=== PATIENT | female | born 1950 | race Caucasian/White ===

== ENCOUNTER → 2021-04-25 | Outpatient (CLI) | payer MEDICARE, OTHER | END | disposition home or self-care (01) | LOC: LABPAT 11:17 | PROVIDERS: ATTEND Orthopaedic Surgery | DX: Z01.812 Encounter for preprocedural laboratory examination (principal); M16.12 Unilateral primary osteoarthritis, left hip; Z22.322 Carrier or suspected carrier of Methicillin resistant Staphylococcus aureus | CPT/HCPCS: 87070 ==

== ENCOUNTER 2021-04-27 05:58 | Day surgery (SDC) | payer MEDICARE, OTHER ==
[2021-04-25 11:03] VITALS: BMI 25.4
[~2021-04-27 05:58] MED LIST: ALPRAZolam 0.25 MG TAB PO PRN; ALPRAZolam 0.5 MG TAB PO PRN; ASPIRIN 325 MG TAB PO STA; ATORVASTATIN 80 MG TAB PO STA; NITROGLYCERIN SL TABS 0.4 MG TAB SUBLINGUAL PRN; SODIUM CHLORIDE 0.9% 1,000 ML in EMPTY BAG 1 BAG IV ONE
[2021-04-27 06:53] VITALS: RESP 18; TEMP 98
[2021-04-27] MEDS ORDERED: fentaNYL (PF) 50 MCG/ML 2 ML AMP ONE (07:10)
[2021-04-27] MEDS ORDERED: LIDOCAINE 1% INJ 10MG/ML (20 ML MDV) ONE (07:10)
[2021-04-27] MEDS ORDERED: MIDAZOLAM 2 MG/2 ML VIAL IV ONE (07:37)
[2021-04-27] MEDS ORDERED: fentaNYL (PF) 50 MCG/ML 2 ML AMP IV ONE (07:37)
[2021-04-27] MEDS ORDERED: LIDOCAINE 1% INJ 10MG/ML (20 ML MDV) SQ ONE (07:41)
[2021-04-27] MEDS ORDERED: IOPAMIDOL-370 125ML BTL INJ ONE (07:51)
[2021-04-27] MEDS ORDERED: RX INFO: IV CONTRAST WAS GIVEN 1 EACH MISC MISCELLANE PRN (08:28)
[2021-04-27] MEDS ORDERED: SODIUM CHLORIDE 0.9% 1,000 ML IV SCH (08:30)
[2021-04-27] MEDS ORDERED: ACETAMINOPHEN TAB 325 MG TAB PO STA (10:22)
[2021-04-27 14:31] VITALS: BP 133/76; PULSE 66
--- NOTE | 2021-04-27 14:49 | CC ---
CARDIAC CATHETERIZATION REPORT INDICATION: This is a 70-year-old lady who was [place] preoperative cardiac evaluation, and because of multiple coronary risk factors underwent a stress test that showed ischemia involving mid anterior wall. Due to this, she was advised to undergo cardiac catheterization for definitive diagnosis. The patient was explained risks, benefits and alternatives, understood and accepted. PROCEDURE NOTE: After obtaining informed consent, left heart catheterization and coronary angiogram were performed via the right femoral artery using standard Nadira catheters. The patient tolerated the procedure well without any obvious immediate complications. A femoral angiogram was performed and Angio-Seal was deployed for hemostasis. Patient received moderate conscious sedation. Total sedation time was 15 minutes. FINDINGS: HEMODYNAMICS: Left ventricular end-diastolic pressure is 8 mm. There is no significant gradient across the aortic valve. LEFT VENTRICULOGRAM: Left ventriculogram was not performed. ANGIOGRAPHIC DATA: Left main coronary artery. Left main coronary artery is a normal-sized vessel and is free of stenosis. It divides into left anterior descending coronary artery and circumflex coronary artery. LAD and its branches, circumflex coronary artery and its branches are free of significant stenosis. Right coronary artery is a large dominant vessel. It shows a mild to moderate atherosclerotic plaque with a 30% to 40% stenosis in the proximal RCA. CONCLUSIONS: 1. Mild nonobstructive coronary artery disease involving right coronary artery. 2. False-positive stress test. PLAN: Patient can proceed with hip replacement surgery by Dr. Nba Eng. Her management is going to be in the form of risk factor modification, optimal medical therapy with aspirin, beta blockers and statin. MMODL / IJN: [id number] /
--- NOTE | 2021-04-27 14:55 | LTR ---
To: Dr. Nba Eng Re: Reshma Gonzalez (46) Dear Dr. Eng, Reshma Gonzlaez is a 70-year-old lady who is to undergo hip replacement surgery by you, and because of an abnormal stress test she underwent cardiac catheterization. I am happy to report to you that she has mild nonobstructive coronary artery disease and can proceed with surgery as previously planned. Thank you for giving me the privilege of participating in the care of this pleasant lady. Sincerely, Nacho Busby M.D. URIAH / ETHAN: [id number] /
== END 2021-04-27 14:30 | disposition home or self-care (01) ==
LOC: CATHCVL 05:58
PROVIDERS: ATTEND Internal Medicine Cardiovascular Disease
DX: I25.10 Atherosclerotic heart disease of native coronary artery without angina pectoris (principal); I10 Essential (primary) hypertension; E78.5 Hyperlipidemia, unspecified; Z82.49 Family history of ischemic heart disease and other diseases of the circulatory system
CPT/HCPCS: 93458; 87635; C1769 ×2; C1760; C1894; J2250; J2001; J3010; Q9967

== ENCOUNTER 2021-05-03 06:16 | Day surgery (SDC) | payer MEDICARE, OTHER ==
[2021-04-28 15:04] VITALS: BMI 24.9
--- NOTE | 2021-05-02 11:54 | HP ---
HISTORY AND PHYSICAL CHIEF COMPLAINT: Left hip pain. HISTORY OF PRESENT ILLNESS: The patient is a 70-year-old retired female who presents with progressive left hip pain for the past 5 years, worsening over the past 6 months. She notes diffuse pain, worse with weightbearing activities and at night. She has tried medications and notes she has been limping. PAST MEDICAL HISTORY: Significant for hypercholesterolemia and hypertension. PAST SURGICAL HISTORY: Significant for breast biopsy, carpal tunnel release and hysterectomy. CURRENT MEDICATIONS: Aspirin, carvedilol, rosuvastatin, ALLERGIES: SHE DENIES DRUG ALLERGIES. FAMILY HISTORY: Significant for heart disease. SOCIAL HISTORY: Negative for current tobacco or alcohol use. REVIEW OF SYSTEMS: Sixteen-point review of systems is otherwise reviewed and noncontributory. PHYSICAL EXAMINATION: On examination, the patient is approximately 5 feet 10 inches, 175 pounds of mesomorphic habitus. HEENT exam is nonfocal. Neck is supple. Passive motion of the left hip flexion 70 degrees, external rotation with the hip flexed 50 degrees, internal rotation 10 degrees with pain. Clinically she is 1 cm short on the left lower extremity compared to the right. She has an antalgic gait pattern. Her distal neurovascular exam appears intact in the left lower extremity. AP and lateral views of the left hip obtained in the office show severe osteoarthrosis with gdck-ew-visa changes, subchondral sclerosis along with cystic changes involving the acetabulum and femoral head. IMPRESSION: Left hip severe osteoarthrosis. RECOMMENDATIONS: I talked to the patient at length regarding her condition along with treatment options. At this point, she is quite symptomatic and limited because of pain related to her osteoarthrosis despite previous conservative measures. After a thorough discussion, she opted to proceed with surgery. We will plan to proceed with left total hip arthroplasty utilizing a direct anterior approach. We will institute DVT prophylaxis postoperatively. MMODL / IJN: [id number] /
[~2021-05-03 06:16] MED LIST changes: +ACETAMINOPHEN TAB 500 MG TAB PO PRN; -ALPRAZolam 0.25 MG TAB PO PRN; -ALPRAZolam 0.5 MG TAB PO PRN; -ASPIRIN 325 MG TAB PO STA; -ATORVASTATIN 80 MG TAB PO STA; +DEXAMETHASONE SOD PHOSPHATE 4 MG/ML 1 ML VIAL IV ONE; +MELOXICAM 7.5 MG TAB PO PRN; -NITROGLYCERIN SL TABS 0.4 MG TAB SUBLINGUAL PRN; +ONDANSETRON 4 MG/2 ML VIAL IVP ONE; -SODIUM CHLORIDE 0.9% 1,000 ML in EMPTY BAG 1 BAG IV ONE; +TRANEXAMIC ACID 1,000 MG in SODIUM CHLORIDE 0.9% 100 ML IVPB PRN
[2021-05-03] MEDS ORDERED: HYDROmorphone 0.5 MG/0.5 ML SYRINGE IVP PRN ×2 (07:00→09:42)
[2021-05-03] MEDS: LACTATED RINGERS 1,000 ML IV SCH ×2 (07:04→15:50)
[2021-05-03] MEDS ORDERED: fentaNYL (PF) 50 MCG/ML 2 ML AMP ONE (07:40)
[2021-05-03] MEDS ORDERED: PROPOFOL 10 MG/ML 20 ML VIAL IV ONE (07:40)
[2021-05-03] MEDS ORDERED: SODIUM CHLORIDE 0.9% 100 ML BAG ONE (07:40)
[2021-05-03] MEDS ORDERED: TRANEXAMIC ACID 1,000 MG/10 ML VIAL ONE (07:40)
[2021-05-03] MEDS ORDERED: MIDAZOLAM 2 MG/2 ML VIAL ONE (07:40)
[2021-05-03] MEDS ORDERED: ceFAZolin 1,000 MG in SODIUM CHLORIDE 0.9% 1,000 ML IRRIGATION ONE (08:19)
[2021-05-03] MEDS ORDERED: LACTATED RINGERS 1,000 ML IV ONE (09:08)
[2021-05-03] MEDS ORDERED: MAGNESIUM HYDROXIDE 2,400 MG/10 ML CUP PO PRN (09:42)
[2021-05-03] MEDS ORDERED: ONDANSETRON 4 MG/2 ML VIAL IVP PRN (09:42)
[2021-05-03] MEDS ORDERED: ACETAMINOPHEN TAB 325 MG TAB PO PRN (09:42)
[2021-05-03] MEDS ORDERED: NALOXONE 0.4 MG/ML 1 ML VIAL IV PRN (09:42)
--- NOTE | 2021-05-03 09:57 | P.OP ---
Date of Procedure: 05/03/21 Preoperative Diagnosis: Left hip severe osteoarthrosis Postoperative Diagnosis: Same Procedure(s) Performed: Left total hip arthroplastypress-fitanterior approach Implants: Depuy Corail size 12 standard collared femoral stem, 36+1.5 cobalt chrome femoral head, 54 mm Jerome acetabular shell with neutral polyethylene liner. Anesthesia: spinal Surgeon: Nba Eng Hand Tool Filer #1: Reece Lewis Estimated Blood Loss (ml): 300 Pathology: other (Femoral head) Condition: stable Disposition: PACU Indications for Procedure: Patient is a 70-year-old female presents with progressive left hip pain secondary to osteoarthritis despite conservative measures. A discussion of the risks and benefits of operative intervention versus continued conservative measures was made with the patient. She opted to proceed with surgery. O perative risks to include infection, neurovascular injury, development of blood clots, fracture, leg length discrepancy, possible instability need for subsequent procedures was discussed. Informed consent was obtained. Operative Findings: As below Description of Procedure: The patient was brought to the operating room, and after induction of spinal anesthesia was placed supine on the Arline table. Positioning was checked with fluoroscopy. The left hip was then prepped and draped in a normal fashion. A 12 cm incision was then made starting 2 fingerbreadths distal and 3 finger breaths posterior to the ASIS in line with the proximal femur. The skin was incised sharply. Subcutaneous tissues were divided sharply. Electrocautery was used for hemostasis. The fascia was split in line with skin incision. The interval between the sartorius and tensor fascia yrn was then bluntly developed. The posterior fascia was opened with electrocautery. The lateral circumflex vessels were identified and cauterized prior to sectioning. A retractor was placed along the superior femoral neck as well as the anterior acetabular rim. A wide capsulotomy was performed. The neck cut was then made at a 45 angle to the shaft approximately 1 1/2 cm above the level of the lesser trochanter. The head was extracted. Attention was then paid towards preparing the acetabular. Anterior and posterior retractors were placed. The remaining capsular labral tissue sharply debrided clearly defining the acetabular margins. I began reaming with a 47 mm reamer taking care to initially medialize then reaming at 45 of abduction and 20 of anteversion. Sequential reaming is performed up to 53 mm. A trial 54 mm acetabular shell was inserted in the same orientation and was fully seated. There was good rim fit and stability. Positioning was checked with fluoroscopy. The final 54 mm acetabular shell was inserted again at 45 of abduction and 20 of anteversion. This was fully seated. There was good rim fit and stability. Again fluoroscopy was used to check the adequacy of placement. A neutral polyethylene liner was gently impacted. Care was taken to avoid any soft tissue interposition. Pulsatile lavage was utilized. Attention was then paid towards preparing the proximal femur. The central region was cleared of soft tissue. A canal finder was used to find the femoral canal. Sequential broaching was performed up to size 12 taking care to lateralize proximally. A calcar mill was used to fashion the medial calcar. There was good rotational stability. A standard neck along with a 36 mm +1.5 head was placed. The hip was gently reduced. Fluoroscopy was used to check the adequacy of positioning along with leg lengths. I felt both were good. The hip was gently dislocated. The trial components were removed. The final size 12 collared standard press-fit femoral stem was inserted parallel to the posterior cortex. This was fully seated and there was good rotational stability. A 36 mm +1.5 head was placed. This was gently impacted. The hip was then gently reduced. Final fluoroscopic view showed adequate placement implant along with sikh of leg length. Stability was checked with 80 of external rotation and 60 of extension of the right hip. The wound was irrigated with sterile lavage. The fascia was closed with running 0 Vicryl suture. There was minimal drainage therefore a deep drain was not placed. The second dose of IV TXA was given. The subcutaneous tissues were reapproximated interrupted 2-0 Vicryl sutures. The skin was reapproximated with 3-0 subcuticular strata fix suture. Skin tape and adhesive was applied. A sterile dressing was applied. The patient was then awoken from sedation and transferred to recovery room in good condition. Blood loss was estimated at 300 mL. No complications were incurred. Sponge and needle counts were correct at the end of the case. Morgan SOSA assisted during the major components is case to include exposure, bone resection, implantation, and closure.
--- NOTE | 2021-05-03 10:00 | XR ---
Fluoroscopy History: TOTAL ANT HIP Fluoroscopy
--- NOTE | 2021-05-03 10:24 | XR ---
EXAMINATION TYPE: XR Hip Limited LT DATE OF EXAM: 05/03/2021 CLINICAL HISTORY: Postoperative evaluation TECHNIQUE: Single portable view of the left hip was submitted. FINDINGS: Noted are changes of total hip arthroplasty with femoral and acetabular components appearin g well seated. Alignment is anatomic. Postsurgical soft tissue changes are evident. IMPRESSION: Satisfactory postoperative alignment
--- NOTE | 2021-05-03 10:48 | FL ---
Fluoroscopy History: TOTAL ANT HIP 28 sec Fl
[2021-05-03] MEDS: HYDROcodone/APAP 5-325MG 1 EACH TAB PO PRN ×2 (14:53→21:13)
[2021-05-03] MEDS ORDERED: SENNOSIDES-DOCUSATE SODIUM 1 EACH TAB PO SCH (21:00)
[2021-05-03] MEDS: carvediloL 12.5 MG TAB PO SCH (21:12)
--- NOTE | 2021-05-03 22:01 | P.CONS ---
History of Present Illness - Reason for Consult Consult date: 05/03/21 Medical Managment of Chronic Conditions Requesting physician: Reece Lewis - History of Present Illness This is a pleasant 70-year-old female who presents to the hospital for a scheduled total left hip arthroplasty utilizing a direct anterior approach with Dr. Harrington. Patient does have a past focal history significant for hypercholesteremia and hypertension. Patient also has a medical history for progressive left hip pain which has affected her weightbearing status. Surgical history includes a breast biopsy, carpal tunnel release and hysterectomy. Home medications include olmesartan, carvedilol, hydrochlorothiazide, rosuvastatin, aspirin 81 mg po daily. Labs available include a potassium of 3.6, COVID negative. Current medications include xarelto for DVT prophylaxis, senna, [place] and Dilaudid for pain management, and IV cefazolin. Vital signs include a heart rate of 74, blood pressure of 137/81, 94% on room air. REVIEW OF SYSTEMS: CONSTITUTIONAL: No fever, no malaise, no fatigue. HEENT: No recent visual problems or hearing problems. Denied any sore throat. CARDIOVASCULAR: No chest pain, orthopnea, PND, no palpitations, no syncope. PULMONARY: No shortness of breath, no cough, no hemoptysis. GASTROINTESTINAL: No diarrhea, no nausea, no vomiting, no abdominal pain. NEUROLOGICAL: No headaches, no weakness, no numbness. HEMATOLOGICAL: Denies any bleeding or petechiae. GENITOURINARY: Denies any burning micturition, frequency, or urgency. MUSCULOSKELETAL/RHEUMATOLOGICAL: Denies any joint pain, swelling, or any muscle pain. ENDOCRINE: Denies any polyuria or polydipsia. The rest of the 14-point review of systems is negative. PHYSICAL EXAMINATION: GENERAL: The patient is alert and oriented x3, not in any acute distress. Well developed, well nourished. HEENT: Pupils are round and equally reacting to light. EOMI. No scleral icterus. No conjunctival pallor. Normocephalic, atraumatic. No pharyngeal erythema. No thyromegaly. CARDIOVASCULAR: S1 and S2 present. No murmurs, rubs, or gallops. PULMONARY: Chest is clear to auscultation, no wheezing or crackles. ABDOMEN: Soft, nontender, nondistended, normoactive bowel sounds. No palpable organomegaly. MUSCULOSKELETAL: No joint swelling or deformity. EXTREMITIES: No cyanosis, clubbing, or pedal edema. NEUROLOGICAL: Gross neurological examination did not reveal any focal deficits. SKIN: No rashes. Assessment and plan Assessment Total left hip arthroplasty Hypertension, resume coreg - hold olmesartan to prevent post op hypotension Hyperlipidemia hypokalemia most likely related to hydrochlorothiazide use; 3.6 GI Prophylaxis - Pepcid DVT Prophylaxis - Xarelto FULL CODE Plan AM Labs, replace potassium per protocol. Started on pepcid for GI prophylaxis d/t xarelto. Resume all home medications tomorrow. Plan is for discharge home tomorrow from surgical services with home health care - PT/OT. Thank you kindly for this consultation. Past Medical History Past Medical History: Hyperlipidemia, Hypertension History of Any Multi-Drug Resistant Organisms: None Reported Past Surgical History: Hysterectomy, Orthopedic Surgery Additional Past Surgical History / Comment(s): Bilateral Carpal Tunnel Surgery, cyst removed from left leg. Past Anesthesia/Blood Transfusion Reactions: No Reported Reaction Past Psychological History: No Psychological Hx Reported Smoking Status: Never smoker Past Alcohol Use History: Occasional Past Drug Use History: None Reported - Past Family History Father Family Medical History: No Reported History Medications and Allergies Home Medications Medication Instructions Recorded Confirmed Type Aspirin [Adult Low Dose Aspirin EC] 81 mg PO DAILY 04/25/21 04/28/21 History Calcium Carbonate [Calcium] 800 mg PO DAILY 04/25/21 04/28/21 History Carvedilol [Coreg] 25 mg PO BID 04/25/21 04/28/21 History Cholecalciferol [Vitamin D3 (25 50 mcg PO DAILY 04/25/21 04/28/21 History Mcg = 1000 Iu)] Multivitamins, Thera [Multivitamin 1 tab PO DAILY 04/25/21 04/28/21 History (formulary)] Olmesartan Medoxomil 40 mg PO QAM 04/25/21 04/28/21 History [place]-3-6-9 1 tab PO DAILY 04/25/21 04/28/21 History Rosuvastatin [Crestor] 20 mg PO HS 04/25/21 04/28/21 History Ubidecarenone [Co Q-10] 100 mg PO DAILY 04/25/21 04/28/21 History hydroCHLOROthiazide 25 mg PO DAILY 04/25/21 04/28/21 History Allergies Allergy/AdvReac Type Severity Reaction Status Date / Time nitrofurantoin AdvReac Unknown Verified 04/28/21 14:50 Physical Exam Vitals: Vital Signs Temp Pulse Pulse Resp BP BP Pulse Ox 05/03/21 13:30 74 16 137/81 94 L 05/03/21 12:30 77 16 150/78 95 05/03/21 12:00 69 16 146/78 97 05/03/21 11:45 64 16 140/80 97 05/03/21 11:30 65 16 143/77 95 05/03/21 11:15 63 16 144/81 94 L 05/03/21 11:00 57 L 16 154/81 99 05/03/21 10:42 56 L 16 143/63 100 05/03/21 10:25 62 16 122/74 100 05/03/21 10:10 55 L 16 117/73 100 05/03/21 09:54 97.8 F 60 16 102/55 97 05/03/21 06:48 97.1 F L 67 15 120/73 97 Intake and Output 05/03/21 05/03/21 05/03/21 06:59 14:59 22:59 Intake Total 1351 Output Total 300 Balance 1051 Intake: IV 1351 Output: Estimated Blood Loss 300 Other: Weight 77.2 kg 77.2 kg Results CBC & Chem 7: 05/03/21 07:49 Assessment and Plan Time with Patient: Greater than 30
[2021-05-03] MEDS: FAMOTIDINE 20 MG TAB PO SCH (22:49)
[2021-05-04] MEDS: HYDROcodone/APAP 5-325MG 1 EACH TAB PO PRN ×2 (03:22→08:10)
[2021-05-04 06:47] LABS: Basophils % (A) 0 %; Eosinophils % (A) 0 %; HCT 31.6 % (34.0-46.0); HGB 10.8 gm/dL (11.4-16.0); Lymphocytes # (A) 1.6 k/uL (1.0-4.8); Lymphocytes % (A) 22 %; MCH 32.3 pg (25.0-35.0); MCHC 34.3 g/dL (31.0-37.0); MCV 94.2 fL (80.0-100.0); Mean Platelet Volume 7.6; Monocytes # (A) 0.4 k/uL (0-1.0); Monocytes % (A) 5 %; Neutrophils # (A) 5.1 k/uL (1.3-7.7); Neutrophils % (A) 72 %; Platelet Count 149 k/uL (150-450); RBC 3.35 m/uL (3.80-5.40); RDW 12.9 % (11.5-15.5); WBC 7.1 k/uL (3.8-10.6)
[2021-05-04 07:09] LABS: African American GFR (CKD) 70 (>60 ml/min/1.73 sqM); Anion Gap 7 mmol/L; Blood Urea Nitrogen 19 mg/dL (7-17); Calcium 8.9 mg/dL (8.4-10.2); Carbon Dioxide 29 mmol/L (22-30); Chloride 103 mmol/L (98-107); Glucose 106 mg/dL (74-99); Non-African American GFR(CKD) 61 (>60 ml/min/1.73 sqM); Potassium 3.7 mmol/L (3.5-5.1); Sodium 139 mmol/L (137-145)
[2021-05-04] MEDS: FAMOTIDINE 20 MG TAB PO SCH (08:10)
[2021-05-04] MEDS: carvediloL 12.5 MG TAB PO SCH (08:10)
[2021-05-04 08:40] VITALS: BP 102/59; PULSE 67; RESP 18; TEMP 97.8
[2021-05-04] MEDS ORDERED: RIVAROXABAN 10 MG TAB PO SCH (09:00)
[2021-05-04] MEDS ORDERED: Potassium Replacement Protocol 1 EACH MISC MISCELLANE PRN (09:26)
--- NOTE | 2021-05-04 10:12 | P.PN ---
Subjective Progress Note Date: 05/04/21 Principal diagnosis: Status post direct anterior left total hip arthroplasty Patient evaluated today at bedside, her is present. She is feeling very well, her pain is well-controlled. She's ambulated very well with physical therapy. She is having no headaches, lightheadedness, chest pain or shortness of breath. Objective - Vital Signs Vital signs: Vital Signs Temp 97.8 F 05/04/21 08:39 Pulse 67 05/04/21 08:39 Resp 18 05/04/21 08:39 BP 102/59 05/04/21 08:39 Pulse Ox 98 05/04/21 08:39 Intake & Output 05/03/21 05/04/21 05/04/21 18:59 06:59 18:59 Intake Total 1351 Output Total 300 Balance 1051 Weight 77.2 kg Intake: IV 1351 Output: Estimated Blood Loss 300 Other: Voiding Method Toilet # Voids 2 1 - Exam Left lower extremity: Incision is clean, dry, and intact. The exofin fusion tape is in good condition. There is minimal soft tissue swelling and ecchymosis surrounding the medial and lateral aspects of the incision. Calf is soft, no tenderness with palpation. Plantar flexion, dorsiflexion, EHL, FHL are intact. Sensory exam to light touch throughout the extremity is intact, dorsal pedis pulses 2+. - Labs CBC & Chem 7: 05/04/21 06:18 05/04/21 06:18 Labs: Abnormal Lab Results - Last 24 Hours (Table) 05/04/21 05/04/21 Range/Units 06:18 06:18 RBC 3.35 L (3.80-5.40) m/uL Hgb 10.8 L (11.4-16.0) gm/dL Hct 31.6 L (34.0-46.0) % Plt Count 149 L (150-450) k/uL BUN 19 H (7-17) mg/dL Glucose 106 H (74-99) mg/dL Assessment and Plan Assessment: Postoperative day #1 status post direct anterior left total hip arthroplasty Plan: Pain control, plan for discharge home on [place] 5 mg/325 mg GI and DVT prophylaxis, plan for discharge, aspirin 81 mg twice a day Wound care instructions were discussed Home physical therapy and nursing after discharge Medical recommendations Discharge planning: Plan for discharge home today Time with Patient: Less than 30
--- NOTE | 2021-05-04 10:16 | P.DS ---
Providers Date of admission: 05/03/2021 Expected date of discharge: 05/04/21 Attending physician: Nba Eng Consults: 05/03/21 09:42 Consult Physician Routine Consulting Provider: Zabrina Calixto Consult Reason/Comments: medical mangement Do you want consulting provider notified?: Yes Primary care physician: Doreen Gallegos [facility] Hospital Course: Date of admission: 05/03/2021 Date of discharge: 05/04/2021 Admission diagnosis: Status post direct anterior left total hip arthroplasty Discharge diagnosis: Same Attending physician: Dr. Eng Surgical procedures: Direct anterior left total hip arthroplasty Brief history: Patient is a 70-year-old female with a history of progressive primary left hip osteoarthritis. At this point patient has failed conservative treatment measures and has opted to proceed with a elective direct anterior left total hip arthroplasty. Hospital course: Details of patient's surgery can be found in operative report. Patient tolerated the procedure well and was subsequently transported to orthopedic floor. Patient's orthopeidc and medical care was provided daily. Patient had daily laboratory tests performed for evaluation of overall blood counts. Patient had daily physical therapy to include strengthening range of motion as well as education with walker ambulation. Patient was treated with Xarelto for their postoperative DVT prophylaxis during their inpatient stay. Patient was noted to have a relatively uneventful postoperative course. Patient reported satisfactory pain control with oral pain medications by postoperative day 0. Patient showed satisfactory progress with physical therapy. Patient moved steadily through the program and had no difficulty meeting the goals by postoperative day 1. Given patient's otherwise satisfactory course and having met physical therapy goals, plan is to discharge patient home on postoperative day 1. Discharge condition/disposition: Patient will be discharged home in stable condition. Discharge medications: Instructions are given on resumption of patient's normal daily medications per primary care recommendation, in addition patient will be prescribed Bath 5 mg/325 mg. Discharge instructions: 1. Wound care and infection precautions, keep incision dry and covered while showering, no lotions, creams, moisturizers. No soaking, tubs, pools, hottubs. Do not scrub over the incision. 2. Weight-bear as tolerated with walker / cane until follow-up. 3. Ice and elevate when necessary. Do not exceed 20 minutes per hour with ice pack. 4. Utilize compression sleeve until seen at first follow up appointment. 5. Visiting nursing care. 6. Home physical therapy. 7. Pain meds and anticoagulants per prescription. 8. Pain medication has potential to cause constipation. Increase oral fluid and fiber intake. Contact primary care provider if you have not had a bowel movement within 48 hours after discharge 9. No anti-inflammatory medication until discussed at first post operative visit, this including Motrin, Aleve, Mobic, Diclofenac. 10. Follow up in office at 2 weeks postop with Morgan Lewis PA-C/Jesús Mckeon 11. Follow up with your primary care doctor 7-10 days after discharge. 12. Contact [facility] with any questions, . Procedures: Direct anterior left total hip arthroplasty Patient Condition at Discharge: Good Plan - Discharge Summary Discharge Rx Participant: Yes New Discharge Prescriptions: New Aspirin [Adult Low Dose Aspirin EC] 81 mg PO BID #60 tab HYDROcodone/APAP 5-325MG [Bath 5-325] 1 tab PO Q6HR PRN 3 Days #28 tab PRN Reason: Pain Discontinued Aspirin [Adult Low Dose Aspirin EC] 81 mg PO DAILY No Action Multivitamins, Thera [Multivitamin (formulary)] 1 tab PO DAILY Rosuvastatin [Crestor] 20 mg PO HS [place]-3-6-9 1 tab PO DAILY Olmesartan Medoxomil 40 mg PO QAM Cholecalciferol [Vitamin D3 (25 Mcg = 1000 Iu)] 50 mcg PO DAILY Ubidecarenone [Co Q-10] 100 mg PO DAILY hydroCHLOROthiazide 25 mg PO DAILY Carvedilol [Coreg] 25 mg PO BID Calcium Carbonate [Calcium] 800 mg PO DAILY Discharge Medication List Calcium Carbonate [Calcium] 800 mg PO DAILY 04/25/21 [History] Carvedilol [Coreg] 25 mg PO BID 04/25/21 [History] Cholecalciferol [Vitamin D3 (25 Mcg = 1000 Iu)] 50 mcg PO DAILY 04/25/21 [History] Multivitamins, Thera [Multivitamin (formulary)] 1 tab PO DAILY 04/25/21 [History] Olmesartan Medoxomil 40 mg PO QAM 04/25/21 [History] [place]-3-6-9 1 tab PO DAILY 04/25/21 [History] Rosuvastatin [Crestor] 20 mg PO HS 04/25/21 [History] Ubidecarenone [Co Q-10] 100 mg PO DAILY 04/25/21 [History] hydroCHLOROthiazide 25 mg PO DAILY 04/25/21 [History] Aspirin [Adult Low Dose Aspirin EC] 81 mg PO BID #60 tab 05/04/21 [Rx] HYDROcodone/APAP 5-325MG [Bath 5-325] 1 tab PO Q6HR PRN 3 Days #28 tab 05/04/21 [Rx] Follow up Appointment(s)/Referral(s): Jesús Dumont, TOVA [PHYSICIAN GENERAL OFFICE ASSISTANT] - 05/19/21 Activity/Diet/Wound Care/Special Instructions: Orthopedic Discharge Instructions: 1. Wound care and infection precautions, keep incision dry and covered while showering, no lotions, creams, moisturizers. No soaking, pools, hot tubs. Do not scrub over incision. 2. Weight-bear as tolerated with walker / cane until follow-up. 3. Ice and elevate when necessary. Do not exceed 20 minutes per hour with ice pack. 4. Utilize compression sleeve until seen at first follow up appointment. 5. Pain meds and anticoagulants per prescription. 6. Pain medication has potential to cause constipation. Increase oral fluid and fiber intake. Contact primary care provider if you have not had a bowel movement within 48 hours after discharge. 7. No anti-inflammatory medication until discussed at first post operative visit, this including Motrin, Aleve, Mobic, Diclofenac. 8. Follow up in office at 2 weeks postop with Morgan Lewis PA-C/Jesús Dumont PA-C 9. Follow up with your primary care doctor 7-10 days after discharge. 10. Contact [facility] with any questions, . Discharge Disposition: HOME WITH HOME HEALTH SERVICES
[2021-05-04] MEDS: POTASSIUM CHLORIDE ER 20 MEQ TAB.ER PO SCH ×2 (10:30→11:41)
--- NOTE | 2021-05-04 12:48 | P.PN ---
Subjective Progress Note Date: 05/04/21 This is a pleasant 70-year-old female who presents to the hospital for a scheduled total left hip arthroplasty utilizing a direct anterior approach with Dr. Harrington. Patient does have a past focal history significant for hypercholesteremia and hypertension. Patient also has a medical history for progressive left hip pain which has affected her weightbearing status. Surgical history includes a breast biopsy, carpal tunnel release and hysterectomy. Home medications include olmesartan, carvedilol, hydrochlorothiazide, rosuvastatin, aspirin 81 mg po daily. Labs available include a potassium of 3.6, COVID negative. Current medications include xarelto for DVT prophylaxis, senna, Hibbs and Dilaudid for pain management, and IV cefazolin. Vital signs include a heart rate of 74, blood pressure of 137/81, 94% on room air. Pt underwent a stress test with Dr Busby on 04/27 for a positive stress test; and was found to have mild nonobstructive coronary artery disease. Patient was recommended to take asp irin 81 mg po daily, beta gabino and statin therapy for this. She was cleared by cardiology to procede with total left hip arthroplasty. 05/04/2021 Patient is evaluated today sitting up in the chair with her at the bedside. She denies any pain or discomfort to her left hip. She denies any chest pain, chest pressure, palpitations. She denies any cough or shortness of breath. She denies any nausea, vomiting, diarrhea. She states that she is tolerating a diet well. She is passing gas and voiding without difficulty. Patient is ready for discharge. Due to hypotension postoperatively which is expected, patient will hold olmesartan and hydrochlorothiazide for the next couple days. She can check her blood pressure home if it becomes elevated she can resume her almost certain first and then her hydrochlorothiazide. She denies any dizziness, lightheadedness, is ambulating without incidence. Potassium today was 3.7 it was replaced per protocol. We will order a recheck in a couple days. Additional labs included hemoglobin of 10.8. Vital signs today include a temperature of 97.8, heart rate 67, blood pressure 102/59, 90% on room air. ROS: Constitutional: Denied any fatigue denied any fever. Cardio vascular: denied any chest pain, palpitations Gastrointestinal denied any nausea vomiting Pulmonary: Denied any shortness of breath cough Neurologic denied any new focal deficits All inpatient medications were reviewed and appropriate changes in these medications as dictated in the interval history and assessment and plan. PHYSICAL EXAMINATION: GENERAL: The patient is alert and oriented x3, not in any acute distress. Well developed, well nourished. HEENT: Pupils are round and equally reacting to light. EOMI. No scleral icterus. No conjunctival pallor. Normocephalic, atraumatic. No pharyngeal erythema. No thyromegaly. CARDIOVASCULAR: S1 and S2 present. No murmurs, rubs, or gallops. PULMONARY: Chest is clear to auscultation, no wheezing or crackles. ABDOMEN: Soft, nontender, nondistended, normoactive bowel sounds. No palpable organomegaly. MUSCULOSKELETAL: No joint swelling or deformity. EXTREMITIES: No cyanosis, clubbing, or pedal edema. NEUROLOGICAL: Gross neurological examination did not reveal any focal deficits. SKIN: No rashes. Assessment and plan Assessment Osteoarthritis of the left hip Total left hip arthroplasty Hypertension, resume coreg Hyperlipidemia hypokalemia, replaced Mild nonobstructive coronary artery disease involving the right coronary artery with 30-40% stenosis in the proximal RCA, medical management GI Prophylaxis - Pepcid DVT Prophylaxis -aspirin 81 mg twice a day FULL CODE Plan Patient is cleared medically for discharge home. She can resume carvedilol however continue to hold olmesartan and hydrochlorothiazide as she is experiencing some postoperative hypotension. Recheck blood pressure home daily and resume olmesartan first and hydrochlorothiazide as needed. Patient's discharge, aspirin 81 mg twice a day, patient can take Pepcid twice a day for GI prophylaxis. Repeat labs in 2-3 days. Follow-up with PCP and orthopedics. Objective - Vital Signs Vital signs: Vital Signs Temp 97.8 F 05/04/21 08:39 Pulse 67 05/04/21 08:39 Resp 18 05/04/21 08:39 BP 102/59 05/04/21 08:39 Pulse Ox 98 05/04/21 08:39 Intake & Output 05/03/21 05/04/21 05/04/21 18:59 06:59 18:59 Intake Total 1351 Output Total 300 Balance 1051 Weight 77.2 kg Intake: IV 1351 Output: Estimated Blood Loss 300 Other: Voiding Method Toilet # Voids 2 1 - Labs CBC & Chem 7: 05/04/21 06:18 05/04/21 06:18 Labs: Abnormal Lab Results - Last 24 Hours (Table) 05/04/21 05/04/21 Range/Units 06:18 06:18 RBC 3.35 L (3.80-5.40) m/uL Hgb 10.8 L (11.4-16.0) gm/dL Hct 31.6 L (34.0-46.0) % Plt Count 149 L (150-450) k/uL BUN 19 H (7-17) mg/dL Glucose 106 H (74-99) mg/dL Assessment and Plan Time with Patient: Greater than 30
== END 2021-05-04 12:14 | disposition home health service (06) ==
LOC: OR 06:16 → 4SSUR 09:38 → OR 05-04 12:14
PROVIDERS: ATTEND Orthopaedic Surgery
DX: M16.12 Unilateral primary osteoarthritis, left hip (principal); I10 Essential (primary) hypertension; I25.10 Atherosclerotic heart disease of native coronary artery without angina pectoris; Z20.822 Contact with and (suspected) exposure to COVID-19; Z79.82 Long term (current) use of aspirin; Z79.899 Other long term (current) drug therapy; Z88.1 Allergy status to other antibiotic agents; Z90.710 Acquired absence of both cervix and uterus; Z96.642 Presence of left artificial hip joint; E78.00 Pure hypercholesterolemia, unspecified; E78.5 Hyperlipidemia, unspecified; E87.6 Hypokalemia
CPT/HCPCS: 27130; 97161; 80048; 84132; 85025; 88300; 87635; 73501; C1776; J1100; J0690 ×3; J2405; J1170; 36415; 86850; 86900; 86901